=== PATIENT | female | born 1975 | race Caucasian/White ===

== ENCOUNTER 2020-03-11 10:23 | Inpatient (IN) ==
[2020-03-11] MEDS ORDERED: ceFAZolin 2,000 MG in PREMIX 1 EACH IV ONE (10:36)
[2020-03-11] MEDS ORDERED: CITRIC ACID/SODIUM CITRATE 30 ML UDCUP PO ONE (10:36)
[2020-03-11] MEDS ORDERED: OXYTOCIN/LR 30 UNIT/1,000 ML BAG IV ONE (10:37)
[2020-03-11] MEDS ORDERED: LACTATED RINGERS 1,000 ML IV ONE (10:39)
[2020-03-11] MEDS ORDERED: FAMOTIDINE 20 MG/2 ML VIAL IV ONE (10:39)
[2020-03-11 10:57] LABS: Basophils # 0.1 10*3/uL (0.0-0.2); Basophils % 0.6 % (0.0-0.8); Eosinophils % 0.1 % (0.00-10.9); Hematocrit 37.3 VOL% (35.7-47.0); Hemoglobin 11.9 GM/DL (12.0-16.0); Immature Granulocytes Absolute 0.08 #; Lymphocytes # 1.8 10*3/uL (1.4-4.0); Lymphocytes % 22.8 % (21.3-54.2); Mean Corpuscular HGB Conc 31.9 GM/DL (32-36); Mean Corpuscular Volume 85.6 FL (87-102); Mean Platelet Volume 11.6 FL (9.6-12.0); Monocytes % 7.4 % (1.7-12.7); Neutrophils % 68.1 % (38.7-73.9); Platelet Count 248 T/CUMM (130-400); Red Blood Count 4.36 MC/CUMM (3.8-5.5); Red Cell Distribution Width 13.5 % (9.3-17.3); White Blood Count 7.8 T/CUMM (4-12)
[2020-03-11 11:27] LABS: Hypochromasia 1+; Lymphocytes 20 % (20-55); Microcytosis 1+; Platelet Estimate Adequate; Segmented Neutrophils 76 % (50-85); Total Cells Counted 100
[2020-03-11 11:30] LABS: Bilirubin,Total 0.8 MG/DL (0.2-1.0); Calcium 9.1 MG/DL (8.5-10.1); Total Protein 7.9 G/DL (6.4-8.3)
[2020-03-11] MEDS ORDERED: OXYTOCIN 10 UNIT/ML VIAL IM ONE (12:00)
[2020-03-11] MEDS ORDERED: miSOPROStoL 200 MCG TABLET ONE (12:41)
[2020-03-11] MEDS ORDERED: TRANEXAMIC ACID 1,000 MG/10 ML VIAL ONE ×2 (12:41→16:40)
[2020-03-11] MEDS ORDERED: CARBOPROST TROMETHAMINE 250 MCG/ML AMP IM ONE (12:42)
[2020-03-11] MEDS ORDERED: METHYLERGONOVINE 0.2 MG/1 ML AMP ONE ×2 (12:42→16:28)
[2020-03-11] MEDS ORDERED: SODIUM CHLORIDE 0.9% 0 ML IV ONE (12:43)
[2020-03-11] MEDS ORDERED: LIDOCAINE 1% 50 ML VIAL ONE (12:43)
[2020-03-11] MEDS ORDERED: BUPIVACAINE MPF 0.25% 30 ML VIAL ONE (12:45)
[2020-03-11] MEDS: LACTATED RINGERS 1,000 ML IV SCH ×2 (13:15→16:46)
[2020-03-11] MEDS ORDERED: ACETAMINOPHEN 1,000 MG/100 ML VIAL IV ONE (14:29)
[2020-03-11 14:35] LABS: Cord Arterial Blood HCO3 23.6 MMOL/L
[2020-03-11 14:38] LABS: Cord Venous Blood HCO3 23.7 MMOL/L; Cord Venous Blood PCO2 42.9 MMHG; Cord Venous Blood PO2 44.7
[2020-03-11] MEDS ORDERED: OXYTOCIN/LR 20 UNIT/1,000 ML BAG IV ONE ×3 (15:01→15:54)
[2020-03-11] MEDS ORDERED: PROMETHAZINE 25 MG/1 ML VIAL ONE ×2 (15:07→16:29)
[2020-03-11] MEDS ORDERED: fentaNYL 100 MCG/2 ML VIAL ONE (15:07)
[2020-03-11] MEDS ORDERED: GLYCOPYRROLATE 0.4 MG/2 ML VIAL ONE (15:08)
[2020-03-11] MEDS ORDERED: ONDANSETRON 4 MG/2 ML VIAL ONE (15:08)
[2020-03-11] MEDS ORDERED: propofoL 200 MG/20 ML VIAL IV ONE (15:08)
[2020-03-11] MEDS ORDERED: DEXAMETHASONE 4 MG/1 ML VIAL ONE (15:08)
[2020-03-11] MEDS ORDERED: ROCURONIUM 100 MG/10 ML VIAL IV ONE (15:09)
[2020-03-11] MEDS ORDERED: SEVOFLURANE 1 UNIT/15 MINUTE INH ONE (15:09)
[2020-03-11] MEDS ORDERED: MAGNESIUM HYDROXIDE SUSP 30 ML UDCUP PO PRN (15:54)
[2020-03-11] MEDS ORDERED: ONDANSETRON 4 MG/2 ML VIAL IV PRN (15:54)
[2020-03-11] MEDS ORDERED: ACETAMINOPHEN 325 MG TABLET PO PRN (15:54)
[2020-03-11] MEDS ORDERED: RHO(D) IMMUNE GLOBULIN 300 MCG SYRINGE IM ONE (15:54)
[2020-03-11 15:55] LABS: Apearance,Urine CLEAR (Clear); Bilirubin,Urine Negative (Negative); Blood, Urine Moderate mg/dL (Negative); Glucose,Urine (UA) Negative (Negative); Ketones,Urine 80 mg/dL (Negative); Mucus,Urine Occasional /LPF (Occasional); Nitrite,Urine Negative (Negative); Protein,Urine 30 MG/DL; RBC,Urine 113 /HPF (0-4); Squamous Epithelial Cell,Urine Occasional /HPF (0-10); Urine Color Yellow (Yellow); Urine Urobilinogen < 2.0 EU/DL (0.2-1.0); WBC,Urine <1 /HPF (0-6)
[2020-03-11] MEDS ORDERED: HYDROmorphone 2 MG/1 ML VIAL IV ONE (15:59)
[2020-03-11] MEDS ORDERED: LACTATED RINGERS 1,000 ML IV SCH (16:00)
[2020-03-11] MEDS ORDERED: PROMETHAZINE 25 MG/1 ML VIAL IM ONE (16:29)
[2020-03-11] MEDS ORDERED: METHYLERGONOVINE 0.2 MG/1 ML AMP IM ONE (16:29)
[2020-03-11] MEDS: OXYTOCIN/LR 30 UNIT/1,000 ML BAG IV ONE ×2 (16:40→17:01)
[2020-03-11] MEDS ORDERED: SODIUM CHLORIDE 0.9% 100 ML IV ONE (16:42)
[2020-03-11] MEDS: TRANEXAMIC ACID 1,000 MG in SODIUM CHLORIDE 0.9% 100 ML IV ONE ×2 (16:45→17:02)
[2020-03-11 17:17] LABS: Basophils % 0.3 % (0.0-0.8); Eosinophils % 0.1 % (0.00-10.9); Hematocrit 26.5 VOL% (35.7-47.0); Immature Granulocytes % 0.8 %; Lymphocytes % 8.5 % (21.3-54.2); Mean Corpuscular HGB Conc 30.2 GM/DL (32-36); Mean Corpuscular Volume 89.5 FL (87-102); Mean Platelet Volume 11.9 FL (9.6-12.0); Monocytes % 2.5 % (1.7-12.7); Neutrophils % 87.8 % (38.7-73.9); Platelet Count 197 T/CUMM (130-400); Red Blood Count 2.96 MC/CUMM (3.8-5.5); Red Cell Distribution Width 13.4 % (9.3-17.3); White Blood Count 11.8 T/CUMM (4-12)
[2020-03-11] MEDS ORDERED: SODIUM CHLORIDE 0.9% 1,000 ML IV PRN (17:39)
[2020-03-11] MEDS: DOCUSATE SODIUM 100 MG CAPSULE PO SCH (22:06)
[2020-03-12] MEDS: SIMETHICONE CHEW 80 MG TABLET PO PRN ×2 (00:22→05:48)
[2020-03-12] MEDS: PROMETHAZINE 25 MG TABLET PO PRN ×3 (00:40→18:22)
[2020-03-12 01:48] LABS: Hematocrit 31.5 VOL% (35.7-47.0)
[2020-03-12 01:57] LABS: Hemoglobin 10.3 GM/DL (12.0-16.0)
[2020-03-12] MEDS ORDERED: oxyCODONE/ACETAMINOPHEN 5-325 MG TABLET PO PRN (04:02)
[2020-03-12] MEDS ORDERED: BENZOCAINE/MENTHOL LOZENGE 18/BOX PO PRN (05:28)
[2020-03-12] MEDS: IBUPROFEN 800 MG TABLET PO PRN ×2 (05:32→16:01)
[2020-03-12] MEDS ORDERED: WITCH HAZEL PADS 100/JAR TOP PRN (07:25)
[2020-03-12] MEDS ORDERED: HYDROCORTISONE 2.5% RECTAL CREAM 30 GM TUBE TOP PRN (07:25)
[2020-03-12] MEDS ORDERED: METOCLOPRAMIDE 10 MG TABLET PO SCH (08:00)
[2020-03-12] MEDS: MAGNESIUM HYDROXIDE SUSP 30 ML UDCUP PO SCH ×2 (08:51→23:19)
[2020-03-12] MEDS: FERROUS SULFATE 325 MG TABLET PO SCH (08:52)
[2020-03-12] MEDS: BISACODYL 10 MG SUPP RECTAL SCH (08:52)
[2020-03-12] MEDS: DOCUSATE SODIUM 100 MG CAPSULE PO SCH ×2 (08:52→21:00)
[2020-03-12] MEDS: MULTIVITAMIN (PRENATAL) TABLET PO SCH (08:52)
[2020-03-12 10:12] LABS: Basophils % 0.2 % (0.0-0.8); Eosinophils % 0.2 % (0.00-10.9); Hematocrit 25.1 VOL% (35.7-47.0); Hemoglobin 8.3 GM/DL (12.0-16.0); Immature Granulocytes % 0.6 %; Immature Granulocytes Absolute 0.08 #; Lymphocytes % 15.8 % (21.3-54.2); Mean Corpuscular HGB Conc 33.1 GM/DL (32-36); Mean Platelet Volume 11.4 FL (9.6-12.0); Monocytes % 5.9 % (1.7-12.7); Neutrophils % 77.3 % (38.7-73.9); Platelet Count 168 T/CUMM (130-400); Red Blood Count 2.92 MC/CUMM (3.8-5.5); Red Cell Distribution Width 13.5 % (9.3-17.3); White Blood Count 12.9 T/CUMM (4-12)
[2020-03-12] MEDS: oxyCODONE/ACETAMINOPHEN 5-325 MG TABLET PO PRN ×2 (11:43→18:22)
[2020-03-13] MEDS: IBUPROFEN 800 MG TABLET PO PRN ×2 (04:05→14:20)
[2020-03-13] MEDS: oxyCODONE/ACETAMINOPHEN 5-325 MG TABLET PO PRN ×3 (04:05→18:02)
[2020-03-13] MEDS: PROMETHAZINE 25 MG TABLET PO PRN ×3 (04:10→18:02)
[2020-03-13] MEDS ORDERED: MAGNESIUM CITRATE 300 ML BOTTLE PO ONE (07:33)
[2020-03-13] MEDS: METOCLOPRAMIDE 10 MG TABLET PO SCH ×3 (08:17→23:40)
[2020-03-13] MEDS: MULTIVITAMIN (PRENATAL) TABLET PO SCH (08:40)
[2020-03-13] MEDS: FERROUS SULFATE 325 MG TABLET PO SCH (08:40)
[2020-03-13] MEDS: DOCUSATE SODIUM 100 MG CAPSULE PO SCH ×2 (08:40→21:23)
[2020-03-13] MEDS: MAGNESIUM HYDROXIDE SUSP 30 ML UDCUP PO SCH ×2 (08:40→21:23)
[2020-03-13] MEDS: SIMETHICONE CHEW 80 MG TABLET PO PRN ×3 (08:49→21:24)
[2020-03-14] MEDS: IBUPROFEN 800 MG TABLET PO PRN (04:20)
[2020-03-14] MEDS: oxyCODONE/ACETAMINOPHEN 5-325 MG TABLET PO PRN ×2 (05:26→11:42)
[2020-03-14] MEDS: PROMETHAZINE 25 MG TABLET PO PRN ×2 (05:26→11:44)
[2020-03-14 08:45] VITALS: BP 121/83
[2020-03-14] MEDS: MULTIVITAMIN (PRENATAL) TABLET PO SCH (09:15)
[2020-03-14] MEDS: FERROUS SULFATE 325 MG TABLET PO SCH (09:16)
[2020-03-14] MEDS: METOCLOPRAMIDE 10 MG TABLET PO SCH (09:16)
[2020-03-14] MEDS: DOCUSATE SODIUM 100 MG CAPSULE PO SCH (09:16)
[2020-03-14] MEDS: BISACODYL 10 MG SUPP RECTAL SCH (09:28)
[2020-03-14] MEDS: MAGNESIUM HYDROXIDE SUSP 30 ML UDCUP PO SCH (09:28)
[2020-03-14] MEDS ORDERED: DIPH/TET/ACEL PERT BOOSTER VACCINE 0.5 ML VIAL IM ONE (10:14)
== END 2020-03-14 14:15 | disposition home or self-care (01) | DRG 788 ==
LOC: N.LDOUT 10:23 → N.LD 10:25 → N.OB 03-12
PROVIDERS: ADMIT Obstetrics & Gynecology; ATTEND Obstetrics & Gynecology
PROC: LDCSECT (ICD-10-PCS; 2020-03-11 13:30)